=== PATIENT | female | born 1965 | race Caucasian/White ===

== ENCOUNTER → 2018-01-26 | Outpatient (CLI) | payer OTHER ==
[~2018-01-26] MED LIST: AMBEREN PO; NORCO 5-325 TA1 EACH PO
== END ==
LOC: RAD 15:14
DX: M17.11 Unilateral primary osteoarthritis, right knee (principal); M25.562 Pain in left knee; Z96.652 Presence of left artificial knee joint

== ENCOUNTER → 2018-02-17 | Outpatient (CLI) | payer OTHER | LOC: RAD 08:47 | DX: Z12.31 Encounter for screening mammogram for malignant neoplasm of breast (principal) ==

== ENCOUNTER → 2018-04-06 | Outpatient (CLI) | payer OTHER ==
--- NOTE | ~2018-04-06 | SLE ---
[facility] [address] [place] [address] POLYSOMNOGRAPHY STUDY Name: CANTRELLHAYES GILBERT Room #: REG [facility].#: [id number] Admission: 04/06/18 Attend Phys: Naren Duke MD Discharge: Date of : 61 Report #: [id number] THIS REPORT FOR: //name// CC: Naren Malik DATE OF SERVICE: 04/06/2018 ATTENDING PHYSICIAN: Dr. Jamie Malik. The patient is 53 years old who weighs 298 pounds and has a BMI of 49.6. The patient's [place] score was 10. The patient underwent a diagnostic study to rule out RIA. DICTATION ENDS HERE. By: [id number] Naren Duke MD /nt
--- NOTE | ~2018-04-06 | SLE ---
[facility] [place] [address] POLYSOMNOGRAPHY STUDY Name: HAYES CANTRELL Room #: REG [facility].#: [id number] Admission: 04/06/18 Attend Phys: Naren Duke MD Discharge: Date of : 61 Report #: [id number] THIS REPORT FOR: //name// CC: Naren Malik DATE OF SERVICE: 04/06/2018 ATTENDING PHYSICIAN: Dr. Jamie Malik. The patient is 53 years old, weighs 298 pounds with a BMI of 49.6. The patient's [place] score was 10. The patient underwent a diagnostic study at [facility] to rule out RIA. During the night study, the patient spent 414 minutes in bed and slept for 343 minutes with a sleep efficiency of 83%. Sleep latency was 6 minutes with a REM latency of 354 minutes. Overall, sleep architecture showed normal stage 1 sleep, increased stage 2 sleep, normal N3 sleep and reduced REM sleep. During the night study, the patient had a total of 15 apneas, 14 obstructive and 1 central and 92 hypopneas. The patient's apnea hypopnea index was 18.7 per hour with a REM index of 74 per hour and a supine index of 19 per hour. EKG monitoring revealed an average heart rate of 69 beats per minute. No arrhythmias observed. PLMS were seen at an index of 54 per hour and 20 per hour caused EEG arousals. Nocturnal oximetry study revealed an average oxygen saturation of 94% with a lowest of 51%. 6.9 minutes were spent at an oxygen saturation of less than 89% and 2.4 minutes were spent at an oxygen saturation of less than 79%. Due to low AHI, the patient did not meet split night criteria for CPAP initiation. IMPRESSION: 1. Moderate sleep apnea-hypopnea syndrome with worsening during REM sleep. Total AHI 18.7 per hour with a REM AHI of 74 per hour. 2. Nocturnal hypoxia secondary to obstructive sleep apnea. 3. Severe periodic limb movements. RECOMMENDATIONS: 1. The patient would benefit from return to the sleep lab for CPAP titration study. 2. Once optimal CPAP pressure is achieved, then follow up in 4-[address] [facility] [address] [place] [address] POLYSOMNOGRAPHY STUDY Name: HAYES CANTRELL [facility] Room #: REG [facility]..#: [id number] Admission: 04/06/18 Attend Phys: Naren Duke MD Discharge: Date of : 61 Report #: [id number] assess compliance with CPAP and to document clinical improvement. 3. Weight loss is strongly advised. 4. Avoid [employer] depressants. 5. Cautioned regarding driving until symptoms of sleep apnea resolve with the use of CPAP. 6. The patient should also be further evaluated for symptoms of restless legs. By: [id number] Naren Duke MD /nt
== END ==
LOC: SLEEPLAB 03-30 11:55
DX: G47.33 Obstructive sleep apnea (adult) (pediatric) (principal); G47.61 Periodic limb movement disorder; R09.02 Hypoxemia

== ENCOUNTER → 2018-04-28 | Outpatient (CLI) | payer OTHER ==
--- NOTE | 2018-04-29 20:04 | SLE ---
[facility] [place] [address] POLYSOMNOGRAPHY STUDY Name: HAYES CANTRELL Room #: REG [facility]..#: [id number] Admission: 04/28/18 Attend Phys: Naren Duke MD Discharge: Date of : 61 Report #: [id number] THIS REPORT FOR: //name// CC: Naren Malik MD DATE OF SERVICE: 04/28/2018 SLEEP STUDY ATTENDING PHYSICIAN: Jamie Malik MD. The patient is 53 years old who weighs 298 pounds with a BMI of 49.6. The patient had a previous sleep study and was found to have moderate RIA with worsening during REM sleep. Total AHI 18.7 per hour with a REM AHI of 74 per hour. She also had severe PLMS and nocturnal hypoxia secondary to RIA. The patient returned to [facility] for CPAP titration study. During the night study, the patient spent 467 minutes in bed and slept for 268 minutes with a low sleep efficiency of 57%. Sleep latency was 20.9 minutes with a REM latency of 166 minutes. Overall, sleep architecture showed increased stage 1 and stage 2 sleep, normal slow wave and slightly reduced REM sleep, which was 16% of total sleep time. EKG monitoring revealed an average heart rate of 69 beats per minute. No sustained arrhythmias observed. PLMS were seen at an index of 46 per hour and 11 per hour caused EEG arousals. The patient was started on CPAP at a pressure of 5 cm water and titrated up to 9 cm water. At the final pressure, the patient slept for 210 minutes. The patient had 42 minutes of REM sleep. No supine REM observed, but lateral REM was seen. The patient's AHI was reduced to 6 per hour and oxygen saturation remained above 88% with one spot desaturation of 85%. The patient preferred nasal pillows. I would recommend final CPAP pressure of 10 cm of water. IMPRESSION: 1. Sleep apnea diagnosed by previous sleep study. 2. Severe periodic limb movements. 3. Reduced sleep efficiency resulting from sleep maintenance insomnia. RECOMMENDATIONS: 1. CPAP at 10 cm water should be used on a nightly basis. 2. Follow up in 4-6 weeks to assess compliance with CPAP and to document [facility] [address] [place] [address] POLYSOMNOGRAPHY STUDY Name: HAYES CANTRELL [facility] Room #: REG [facility] Kait.#: [id number] Admission: 04/28/18 Attend Phys: Naren Duke MD Discharge: Date of : 61 Report #: [id number] clinical improvement with review of the download data. 3. Weight loss is strongly advised. 4. Avoid [employer] depressants. 5. Cautioned regarding driving until symptoms of sleep apnea resolve with the use of CPAP. 6. If patient's insomnia persists despite effective use of CPAP, then it should be further evaluated and treated according to the etiologies. 7. The patient should also be further evaluated for symptoms of restless legs during the day and if present, it can be treated with dopaminergic agonist agents. <ELECTRONICALLY SIGNED> By: Naren Duke MD 04/29/18 2004 [id number] Naren Duke MD /nt
== END ==
LOC: SLEEPLAB 16:33
DX: G47.30 Sleep apnea, unspecified (principal); G47.61 Periodic limb movement disorder; G47.00 Insomnia, unspecified

== ENCOUNTER → 2018-05-22 | Outpatient (CLI) | payer OTHER | LOC: NUC 08:16 | DX: M19.012 Primary osteoarthritis, left shoulder (principal); M19.011 Primary osteoarthritis, right shoulder; M19.072 Primary osteoarthritis, left ankle and foot; M19.071 Primary osteoarthritis, right ankle and foot; Z96.652 Presence of left artificial knee joint ==

== ENCOUNTER 2018-06-05 18:07 | Emergency (ER) | payer OTHER ==
[~2018-06-05] VITALS: Ht 165.1 cm; Wt 133.8 kg
[2018-06-05] MEDS ORDERED: MOBIC15 MG PO (18:21)
[2018-06-05] MEDS ORDERED: PRILOSEC OTC20 MG PO (18:21)
[2018-06-05] MEDS ORDERED: CYCLOBENZAPRINE5 MG PO (18:22)
[2018-06-05] MEDS ORDERED: TYLENOL325 MG PO (18:22)
[2018-06-05] MEDS ORDERED: GLUCOSAMINE HC500 MG PO (18:22)
== END 2018-06-05 19:09 | disposition home or self-care (01) ==
LOC: ER 18:07
DX: M17.11 Unilateral primary osteoarthritis, right knee (principal); Z88.8 Allergy status to other drugs, medicaments and biological substances

== ENCOUNTER → 2018-11-13 | Outpatient (CLI) | payer OTHER ==
[~2018-11-13] MED LIST changes: +CYCLOBENZAPRINE5 MG PO; +GLUCOSAMINE HC500 MG PO; +MOBIC15 MG PO; +PRILOSEC OTC20 MG PO; +TYLENOL325 MG PO
== END ==
LOC: MRI 07:58
DX: S83.281A Other tear of lateral meniscus, current injury, right knee, initial encounter (principal); S83.241A Other tear of medial meniscus, current injury, right knee, initial encounter; X58.XXXA Exposure to other specified factors, initial encounter; Y93.89 Activity, other specified; Y92.89 Other specified places as the place of occurrence of the external cause; Y99.8 Other external cause status

== ENCOUNTER → 2019-05-04 | Outpatient (CLI) | payer OTHER | LOC: RAD 11:39 | DX: M25.561 Pain in right knee (principal); Z96.651 Presence of right artificial knee joint ==

== ENCOUNTER → 2019-06-09 | Outpatient (CLI) | payer OTHER | LOC: RAD 12:42 | DX: M25.551 Pain in right hip (principal); Z96.641 Presence of right artificial hip joint ==

== ENCOUNTER → 2020-02-11 | Outpatient (CLI) | payer OTHER ==
[2020-02-11 11:19] LABS: URINE BILIRUBIN NEGATIVE (Negative); URINE BLOOD NEGATIVE (Negative); URINE CLARITY CLEAR; URINE COLOR YELLOW; URINE GLUCOSE-RANDOM* NEGATIVE (Negative); URINE KETONES NEGATIVE (Negative); URINE LEUKOCYTES-REFLEX NEGATIVE (Negative); URINE NITRITE-REFLEX NEGATIVE (Negative); URINE PROTEIN (DIPSTICK) NEGATIVE (Negative); URINE UROBILINOGEN 0.2 E.U./dl (0.2-1.0)
[2020-02-11 11:21] LABS: HEMATOCRIT 41.7 % (37.0-47.0); HEMOGLOBIN 13.8 gm/dL (12.0-15.0); MCH 31.1 pg (26.0-34.0); MCHC 33.2 g/dL (28.0-37.0); MCV 93.7 fL (80.0-100.0); PLATELET COUNT 198 thou/uL (150-400); RBC 4.45 mil/uL (4.20-5.00); RDW 13.3 % (10.5-14.5); WBC 2.9 thou/uL (4.0-11.0)
[2020-02-11 11:39] LABS: ALBUMIN 3.4 g/dL (3.4-5.0); ANION GAP 9 mmol/L (7-16); BUN 11 mg/dL (7-18); CALCIUM 9.1 mg/dL (8.5-10.1); CHLORIDE 107 mmol/L (98-107); CHOLESTEROL 234 mg/dL (<200); CO2 30 mmol/L (21-32); CREATININE 0.9 mg/dL (0.6-1.0); GLUCOSE 97 mg/dL (74-106); HDL CHOLESTEROL 61 mg/dL (>40); LDL CHOLESTEROL 156 mg/dL (<100); POTASSIUM 4.5 mmol/L (3.5-5.1); SGOT 10 U/L (15-37); SGPT 23 U/L (30-65); SODIUM 146 mmol/L (136-145); TC:HDL 3.8 Ratio (Not establshd); TOTAL BILIRUBIN 0.4 mg/dL (0.2-1.0); TOTAL PROTEIN 6.4 g/dL (6.4-8.2); TRIGLYCERIDE 87 mg/dL (<150); VLDL 17 mg/dL (<40)
[2020-02-11 12:13] LABS: ABSOLUTE NEUTROPHILS 2.1 thou/uL (1.4-8.2); PLATELET ESTIMATE NORMAL
== END ==
LOC: LAB 10:38
PROVIDERS: ATTEND Family Medicine
DX: Z00.00 Encounter for general adult medical examination without abnormal findings (principal); E66.01 Morbid (severe) obesity due to excess calories; G47.19 Other hypersomnia; Z68.42 Body mass index [BMI] 45.0-49.9, adult

== ENCOUNTER 2021-03-01 01:02 | Emergency (ER) | payer OTHER ==
[~2021-03-01] VITALS: Ht 165.1 cm; Wt 120.2 kg
[2021-03-01 02:16] VITALS: BP 141/78
== END 2021-03-01 02:19 | disposition home or self-care (01) ==
LOC: ER 01:02
DX: S52.591A Other fractures of lower end of right radius, initial encounter for closed fracture (principal); M25.562 Pain in left knee; M25.561 Pain in right knee; M54.50 Low back pain, unspecified; M19.90 Unspecified osteoarthritis, unspecified site; Z98.890 Other specified postprocedural states; Z79.891 Long term (current) use of opiate analgesic; Z79.1 Long term (current) use of non-steroidal anti-inflammatories (NSAID); Z79.899 Other long term (current) drug therapy; Z88.8 Allergy status to other drugs, medicaments and biological substances; W18.39XA Other fall on same level, initial encounter; Y93.89 Activity, other specified; Y92.89 Other specified places as the place of occurrence of the external cause; Y99.8 Other external cause status

== ENCOUNTER → 2021-03-21 | Outpatient (CLI) | payer OTHER ==
[2021-03-21 13:03] LABS: HEMATOCRIT 42.1 % (37.0-47.0); HEMOGLOBIN 14.1 gm/dL (12.0-15.0); MCH 30.9 pg (26.0-34.0); MCHC 33.4 g/dL (28.0-37.0); MCV 92.4 fL (80.0-100.0); PLATELET COUNT 184 thou/uL (150-400); RBC 4.55 mil/uL (4.20-5.00); WBC 2.8 thou/uL (4.0-11.0)
[2021-03-21 13:07] LABS: URINE BILIRUBIN NEGATIVE (Negative); URINE BLOOD NEGATIVE (Negative); URINE CLARITY CLEAR; URINE COLOR YELLOW; URINE GLUCOSE-RANDOM* NEGATIVE (Negative); URINE KETONES NEGATIVE (Negative); URINE LEUKOCYTES-REFLEX NEGATIVE (Negative); URINE NITRITE-REFLEX NEGATIVE (Negative); URINE PROTEIN (DIPSTICK) NEGATIVE (Negative); URINE SPECIFIC GRAVITY 1.015 (1.005-1.035); URINE UROBILINOGEN 0.2 E.U./dl (0.2-1.0)
[2021-03-21 13:15] LABS: ALBUMIN 3.3 g/dL (3.4-5.0); ANION GAP 0 mmol/L (7-16); BUN 14 mg/dL (7-18); CALCIUM 8.8 mg/dL (8.5-10.1); CHLORIDE 105 mmol/L (98-107); CHOLESTEROL 248 mg/dL (<200); CO2 32 mmol/L (21-32); CREATININE 0.9 mg/dL (0.6-1.0); GLUCOSE 99 mg/dL (74-106); HDL CHOLESTEROL 51 mg/dL (>40); LDL CHOLESTEROL 166 mg/dL (<100); POTASSIUM 4.4 mmol/L (3.5-5.1); SGOT 16 U/L (15-37); SGPT 23 U/L (30-65); SODIUM 137 mmol/L (136-145); TC:HDL 4.9 Ratio (Not establshd); TOTAL BILIRUBIN 0.6 mg/dL (0.2-1.0); TOTAL PROTEIN 6.6 g/dL (6.4-8.2); TRIGLYCERIDE 156 mg/dL (<150); VLDL 31 mg/dL (<40)
== END ==
LOC: LAB 11:43
PROVIDERS: ATTEND Family Medicine
DX: Z00.00 Encounter for general adult medical examination without abnormal findings (principal)

== ENCOUNTER → 2021-03-27 | Outpatient (CLI) | payer OTHER | LOC: CAT 11:07 | PROVIDERS: ATTEND Family Medicine | DX: Z13.6 Encounter for screening for cardiovascular disorders (principal); I25.10 Atherosclerotic heart disease of native coronary artery without angina pectoris; E78.00 Pure hypercholesterolemia, unspecified ==